=== PATIENT | male | born 1950 | race Asian ===

== ENCOUNTER 2017-05-02 10:00 | Inpatient (IN) | payer OTHER ==
[~2017-05-02] VITALS: Ht 157.5 cm; Wt 54.9 kg
--- NOTE | 2017-05-02 10:00 | NUR ---
PT PLACED IN BED 4 BY EMS.
--- NOTE | 2017-05-02 10:02 | NUR ---
Patient being evaluated by Dr. Grace at bedside.
--- NOTE | 2017-05-02 10:05 | NUR ---
PATIENT PRESENTS TO ED WITH RESP DISTRESS BROUGHT IN BY EMS . PT STATES 1-2 WORDED SPEECH . DENIES N/V/D; SKIN IS PINK/WARM/DRY; AAOX4 WITH EVEN AND STEADY GAIT; LUNGS DISTANT BREATH SOUNDS, COARSE RALES---HR TACHY AFIB; PT DENIES ANY FEVER, PATIENT STATES PAIN OF 5/10 AT THIS TIME; VSS; PATIENT POSITIONED FOR COMFORT; HOB ELEVATED; BEDRAILS UP X2; BED DOWN. ER MD MADE AWARE OF PT STATUS.
[2017-05-02] MEDS ORDERED: ALBUTEROL SULFATE/IPRATROPIU 3 ML SOL IH ONE (10:10)
[2017-05-02] MEDS ORDERED: MAG SULF 2000 MG/WATER PREMIX 50 ML IV ONE (10:10)
[2017-05-02] MEDS ORDERED: methylPREDNISolone SS 125 MG in WATER STERILE 2 ML IV ONE (10:10)
[2017-05-02] MEDS ORDERED: NACL 0.9% 1,000 ML IV ONE (10:10)
[2017-05-02 10:11] VITALS: BP 146/72
[2017-05-02] MEDS ORDERED: PIPERACILLIN/TAZOBACTAM 3.375 GM in DEXTROSE 5% 50 ML IV ONE (10:40)
[2017-05-02 10:45] LABS: BASOPHILS # (AUTO) 0.1 K/uL (0.00-0.22); BASOPHILS % (AUTO) 0.7 % (0.0-2.0); EOSINOPHILS # (AUTO) 0.2 K/uL (0-0.4); EOSINOPHILS % (AUTO) 1.4 % (0.0-4.0); HEMATOCRIT 35.5 % (36-52); HEMOGLOBIN 11.4 g/dL (12.0-18.0); LYMPHOCYTES # (AUTO) 0.6 K/uL (2.0-11.5); LYMPHOCYTES % (AUTO) 3.8 % (20.5-51.1); MEAN CORPUSCULAR HEMOGLOBIN 27 pg (27-31); MEAN CORPUSCULAR HGB CONC 32 g/dL (33-37); MEAN CORPUSCULAR VOLUME 83 fL (80-94); MONOCYTES # (AUTO) 0.4 K/uL (0.8-1.0); MONOCYTES % (AUTO) 2.4 % (1.7-9.3); NEUTROPHILS # (AUTO) 13.3 K/uL (1.8-7.7); NEUTROPHILS % (AUTO) 91.7 % (42.2-75.2); PLATELET COUNT (AUTO) 285 K/uL (140-450); RED CELL DISTRIBUTION WIDTH 13.1 % (11.6-13.7)
--- NOTE | 2017-05-02 10:50 | NUR ---
FAMILY AT BEDSIDE
[2017-05-02 10:51] LABS: ANION GAP 17.7 (8-16); CALCIUM 8.5 mg/dL (8.5-10.1); CARBON DIOXIDE 21.4 mmol/L (21-32); CREATININE 1.3 mg/dL (0.6-1.3); POTASSIUM 4.1 mmol/L (3.5-5.1)
[2017-05-02 10:56] LABS: WHITE BLOOD COUNT (AUTO) 14.6 K/uL (4.8-10.8)
[2017-05-02 10:57] LABS: ALBUMIN 2.9 g/dL (3.4-5.0); TOTAL BILIRUBIN 0.5 mg/dL (0.0-1.0); TOTAL PROTEIN, SERUM 7.7 g/dL (6.4-8.2)
[2017-05-02] MEDS ORDERED: PIPERACILLIN/TAZOBACTAM 3.375 GM VIAL IV ONE (11:12)
[2017-05-02 11:13] LABS: INR 1.1 (0.8-1.2); PARTIAL THROMBOPLASTIN TIME 30.5 secs (22-35.6); PROTHROMBIN TIME 10.7 secs (10.8-13.4)
[2017-05-02] MEDS ORDERED: FUROSEMIDE 40 MG/4 ML VIAL IVP ONE (11:15)
[2017-05-02] MEDS ORDERED: ASPIRIN 81 MG TAB.CHEW PO ONE (11:15)
[2017-05-02] MEDS ORDERED: NITROGLYCERIN 2% 1 GM PKT TP ONE (11:15)
[2017-05-02] MEDS ORDERED: ENOXAPARIN 60 MG/0.6 ML SYR SUBQ ONE (11:15)
[2017-05-02] MEDS ORDERED: NIFE30TE8 PO (12:00)
[2017-05-02] MEDS ORDERED: METF500T PO (12:00)
[2017-05-02] MEDS ORDERED: MELO15TA11 PO (12:00)
[2017-05-02] MEDS ORDERED: TAMS0.4C96 PO (12:00)
[2017-05-02] MEDS ORDERED: PRAM0.5T4 PO (12:00)
[2017-05-02] MEDS ORDERED: GABA-638 PO (12:00)
--- NOTE | 2017-05-02 12:00 | NUR ---
RESTING WITH OU CLOSED, EASY TO AWAKEN---ADMITS BREATHING MUCH EASIER INTERPRETED BY DAUGHTER JANAK. DENIES MESA, NO CP
[2017-05-02] MEDS ORDERED: MORPHINE SULFATE 2 MG/ML SYR IVP PRN (12:25)
[2017-05-02] MEDS ORDERED: HYDROcodone/APAP 5/325 MG 1 TAB TAB PO PRN (12:25)
[2017-05-02] MEDS ORDERED: ONDANSETRON 4 MG/2 ML VIAL IVP PRN (12:25)
[2017-05-02] MEDS ORDERED: ACETAMINOPHEN 325 MG TAB PO PRN (12:25)
[2017-05-02] MEDS ORDERED: LORazepam 2 MG/ML VIAL IVP PRN (12:25)
--- NOTE | 2017-05-02 12:40 | NUR ---
HANDED PT'S URINAL TO HELP PT---CONTINUES TO DENIE MESA, NO NAUSEA, NO CP
--- NOTE | 2017-05-02 12:50 | NUR ---
PT HOLDING CONVERSATION WITH AT BEDSIDE
--- NOTE | 2017-05-02 13:05 | NUR ---
RECEIVED REPORT FROM SARA HIGH IN THE ER. PT IS A 66 Y/O MALE, LITHUANIAN SPEAKING. GOT THE ROOM READY. WAITING FOR PT TO ARRIVE ONTO THE FLOOR.
[2017-05-02 13:26] LABS: APPEARANCE,URINE CLEAR (CLEAR); BILIRUBIN,URINE NEGATIVE (NEGATIVE); BLOOD, URINE NEGATIVE (NEGATIVE); COLOR,URINE YELLOW (YELLOW); LEUKOCYTE ESTERASE ,URINE NEGATIVE (NEGATIVE); NITRITE, URINE NEGATIVE (NEGATIVE); PROTEIN,URINE NEGATIVE (NEGATIVE); UGLUCOSE NEGATIVE (NEGATIVE); UROBILINOGEN,URINE 0.2 EU/dL (0.2 - 1)
--- NOTE | 2017-05-02 13:30 | NUR ---
PT ARRIVED ON THE UNIT WITH 2 ER NURSES. PT IS AWAKE AND ALERT. I INTRODUCED MYSELF AND UPDATED THE BOARD. PT WEARING A VENTURI MASK, 12 L O2. PT IS BREATHING DEEPLY, USING ACCESSORY MUSCLES. PT HAS IV IN HIS L FA 20G, NS NOT INFUSING AT THIS TIME. PT HAS BRUISES ON HIS CHEST, D/T "COINING" THIS MORNING. NO SIGNS OF EDEMA IN EXTREMETIES. SKIN IS INTACT. DAUGHTER AND SPOUSE AT BEDSIDE. DR KEITA WAS HERE TO EXAMINE THE PT. WILL CONTINUE WITH ADMISSION.
[2017-05-02] MEDS: ALBUTEROL 0.083% 2.5 MG/3 ML NEBU IH SCH ×2 (14:04→20:18)
--- NOTE | 2017-05-02 14:14 | NUR ---
SATURATION 98% ON SUPPLEMENTAL OXYGEN VIA VENTI-MASK AT 15 LPM POST HHN THERAPY CHANGED OXYGEN DEVICE TO A NASAL CANNULA AT 2 LPM EUGENIO/RN NOTIFIED
[2017-05-02 14:23] VITALS: BP 120/65
--- NOTE | 2017-05-02 15:04 | NUR ---
ADMINISTERED ROCEPHIN. PT TOLERATING WELL. PT RESTING COMFORTABLY. NO SIGNS OF DISTRESS. NO COMPLAINTS AT THIS TIME. ASKED ABOUT FAMILY. I REMINDED HIM THAT THEY WILL BE HERE SOON. WILL CONTINUE TO CHECK ON PT.
[2017-05-02] MEDS ORDERED: DEXTROSE 50% 50 ML SYR IVP PRN (15:35)
[2017-05-02] MEDS: BLOOD GLUCOSE MONITORING 1 DEV DEV FS SCH ×2 (16:41→21:15)
[2017-05-02] MEDS: GABAPENTIN 300 MG CAP PO SCH (16:42)
[2017-05-02] MEDS: AZITHROMYCIN 500 MG in DEXTROSE 5% 250 ML IV SCH (16:42)
[2017-05-02] MEDS: INSULIN LISPRO SLIDING SCALE 100 UNITS/ML VIAL SUBQ PRN ×2 (16:45→21:21)
--- NOTE | 2017-05-02 17:00 | NUR ---
PT SLEEPING COMFORTABLY. ADMINISTERED ABX. PT TOLERATING WELL. NO FAMILY YET. WILL CONTINUE TO MONITOR PT.
[2017-05-02 18:38] VITALS: BP 109/55
--- NOTE | 2017-05-02 18:43 | NUR ---
PT ATE DINNER. TOLERATED WELL. PT RESTING IN BED. NEEDED A VOMIT BAG FOR SPIT UP. NO VOMITING. PT DENIES PAIN. NO COMPLAINTS. WILL CONTINUE TO MONITOR.
--- NOTE | 2017-05-02 19:20 | NUR ---
ENDORSED PT TO THE FLIGHT OPERATION COORDINATOR NURSE AT BEDSIDE FOR CONTINUITY OF CARE. PT IS IN STABLE CONDITION.
--- NOTE | 2017-05-02 19:25 | NUR ---
RECEIVED PT AWAKE, ON HIGH FOWLERS POSITION, VITAL SIGNS TAKEN, BP-96/52, TOOK OFF NITRO-PASTE, DENIES ANY PAIN, NO SOB NOTED, ON O2 AT 2L/NC, LUXEMBOURGER SPEAKING BUT CAN UNDERSTAND A LITTLE BERMUDIAN, SAFETY MEASURES IN PLACE, PLAN OF CARE DISCUSSED WITH PT AND SON AT BEDSIDE, CALL LIGHT WITHIN REACH.
[2017-05-02 20:00] VITALS: BP 96/52
[2017-05-02 20:00] LABS: CREATINE KINASE MB 2.3 ng/mL (0-3.6)
[2017-05-02] MEDS: FUROSEMIDE 40 MG/4 ML VIAL IVP SCH (21:00)
[2017-05-02] MEDS: METOPROLOL 25 MG TAB PO SCH (21:00)
[2017-05-02] MEDS: CARVEDILOL 3.125 MG TAB PO SCH (21:00)
[2017-05-02] MEDS: SIMVASTATIN 40 MG TAB PO SCH (21:17)
[2017-05-02] MEDS: PRAMIPEXOLE 0.5 MG TAB PO SCH (21:17)
--- NOTE | 2017-05-02 21:40 | NUR ---
PT VOIDING FREELY PER URINAL WITH 300ML CLEAR URINE, STRICT I&O, ALL NEEDS ATTENDED.
--- NOTE | 2017-05-02 22:50 | NUR ---
PT AMBULATED TO BR WITH ASSIST, NO SOB NOTED, VERBALIZED HAD BM WITH MODERATE SOFT STOOL, MONITORED CLOSELY.
[2017-05-03] VITALS: BP 113/53
--- NOTE | 2017-05-03 | NUR ---
PT SLEEPING, EASILY AROUSABLE, VITAL SIGNS STABLE, DENIES ANY PAIN AND NO SOB NOTED, CONTINUE TO MONITOR CLOSELY.
[2017-05-03] MEDS: ALBUTEROL 0.083% 2.5 MG/3 ML NEBU IH SCH ×4 (01:15→19:45)
[2017-05-03 04:00] VITALS: BP 102/54
--- NOTE | 2017-05-03 04:00 | NUR ---
PT SLEEPING, EASILY AROUSABLE, VITAL SIGNS STABLE, DENIES ANY PAIN OR SOB, OCCASIONAL PRODUCTIVE COUGH NOTED, MONITORED CLOSELY.
--- NOTE | 2017-05-03 06:00 | NUR ---
BLOOD SUGAR CHECKED WITH 197 RESULT, COVERAGE GIVEN, SPUTUM FOR CULTURE SENT TO LAB.
[2017-05-03] MEDS: INSULIN LISPRO SLIDING SCALE 100 UNITS/ML VIAL SUBQ PRN ×3 (06:02→18:20)
[2017-05-03 06:41] LABS: BASOPHILS % (AUTO) 0.1 % (0.0-2.0); EOSINOPHILS % (AUTO) 0.1 % (0.0-4.0); HEMATOCRIT 30.7 % (36-52); HEMOGLOBIN 9.7 g/dL (12.0-18.0); LYMPHOCYTES # (AUTO) 0.3 K/uL (2.0-11.5); LYMPHOCYTES % (AUTO) 2.3 % (20.5-51.1); MEAN CORPUSCULAR HEMOGLOBIN 26 pg (27-31); MEAN CORPUSCULAR HGB CONC 32 g/dL (33-37); MEAN CORPUSCULAR VOLUME 82 fL (80-94); MONOCYTES # (AUTO) 0.2 K/uL (0.8-1.0); MONOCYTES % (AUTO) 2.2 % (1.7-9.3); NEUTROPHILS # (AUTO) 10.6 K/uL (1.8-7.7); NEUTROPHILS % (AUTO) 95.3 % (42.2-75.2); PLATELET COUNT (AUTO) 276 K/uL (140-450); RED BLOOD CELL COUNT(AUTO) 3.75 MIL/uL (4.20-6.10); RED CELL DISTRIBUTION WIDTH 12.8 % (11.6-13.7); WHITE BLOOD COUNT (AUTO) 11.1 K/uL (4.8-10.8)
[2017-05-03] MEDS: BLOOD GLUCOSE MONITORING 1 DEV DEV FS SCH ×4 (06:42→20:48)
[2017-05-03 07:05] LABS: ANION GAP 17.7 (8-16); CALCIUM 8.1 mg/dL (8.5-10.1); CARBON DIOXIDE 21.1 mmol/L (21-32); CREATININE 1.5 mg/dL (0.6-1.3); POTASSIUM 3.8 mmol/L (3.5-5.1)
--- NOTE | 2017-05-03 07:30 | NUR ---
PT AWAKE, NO DISTRESS NOTED, REPORT GIVEN TO GREG DUMONT FOR CONTINUITY OF CARE.
--- NOTE | 2017-05-03 07:32 | NUR ---
PT UNABLE TO PRODUCE SPUTUM AT THIS TIME
--- NOTE | 2017-05-03 07:45 | NUR ---
Patient's Plan of Care was discussed and reviewed with WATER TREATMENT PLANT REPAIRER: SPARK
[2017-05-03 08:00] VITALS: BP 112/61
[2017-05-03] MEDS: FUROSEMIDE 40 MG/4 ML VIAL IVP SCH ×2 (08:59→21:05)
[2017-05-03] MEDS: NIFEdipine 30 MG TABER PO SCH ×2 (09:00→10:47)
--- NOTE | 2017-05-03 09:00 | NUR ---
BP 105/60. IV LASIX HELD. WILL CONTINUE TO MONITOR
--- NOTE | 2017-05-03 09:59 | NUR ---
PATIENT HAS BEEN SCREENED AND CATEGORIZED MODERATE NUTRITION RISK. PATIENT WILL BE SEEN WITHIN 3-5 DAYS OF ADMISSION. 05/05/17-05/07/[address]
[2017-05-03] MEDS: GABAPENTIN 300 MG CAP PO SCH ×3 (10:44→17:52)
[2017-05-03] MEDS: CARVEDILOL 3.125 MG TAB PO SCH ×2 (10:44→21:00)
[2017-05-03] MEDS: ENALAPRIL 5 MG TAB PO SCH (10:45)
[2017-05-03] MEDS: ASPIRIN 81 MG TAB.CHEW PO SCH (10:45)
[2017-05-03] MEDS: TAMSULOSIN 0.4 MG CAP PO SCH (10:45)
[2017-05-03] MEDS: METOPROLOL 25 MG TAB PO SCH ×2 (10:46→21:00)
[2017-05-03] MEDS: ENOXAPARIN 40 MG/0.4 ML SYR SUBQ SCH (10:51)
--- NOTE | 2017-05-03 11:59 | NUR ---
FAXED INITIAL REVIEW TO [facility] [phone] PHONE [phone] SELINA
[2017-05-03 12:18] VITALS: BP 108/62
[2017-05-03] MEDS: AZITHROMYCIN 500 MG in DEXTROSE 5% 250 ML IV SCH (16:28)
[2017-05-03 16:31] VITALS: BP 92/53
--- NOTE | 2017-05-03 16:46 | NUR ---
LEFT PERIPHERAL IV NOTED TO HAVE BEEN PULLED OUT UPON ASSESSMENT. NO BLEEDING NOTED. NO C/O PAIN FROM PT. NEW IV STARTED IN LEFT FOREARM 20 GAUGE. GOOD BLOOD RETURN. FLUSHES WELL. INTACT AND PATENT. NO C/O PAIN FROM PT. TOLERATED WELL.
--- NOTE | 2017-05-03 19:50 | NUR ---
RECEIVED REPORT FROM MORNING NURSE AT BEDSIDE, PT IS AAOX4, PERSIAN SPEAKING, ABLE TO FOLLOW COMMANDS AND MAKE NEEDS KNOWN, VSS. DENIES PAIN, NO SOB/DISTRESS NOTED, BREATHING EVEN AND UNLABORED, CRACKLED LUNG SOUND NOTED, ON RA. SR ON TELE MONITOR, DENIES CHEST PAIN, SOFT ABDOMEN WITH ACTIVE BOWEL SOUNDS, CONTINENT B&B, GENERALIZED WEAKNESS NOTED, BUT AMBULATORY WITH STEADY GAIT, AFEBRILE, SKIN IS INTACT, WARM AND DRY TO TOUCH. IV SITE TO LEFT FOREARM 20 GA, PATENT, SL. SAFETY MEASURES IN PLACE, PLAN OF CARE DISCUSSED WITH PT AND SON AT BEDSIDE, CALL LIGHT WITHIN REACH, WILL CONTINUE TO MONITOR.
[2017-05-03 20:00] VITALS: BP 92/45
--- NOTE | 2017-05-03 21:00 | NUR ---
PT'S BP 92/45, SCHEDULED BP MEDICATION HOLD ORDERED. ACCU CHECK PERFORMED WITH RESULT OF 142 MG/DL, NO INSULIN GIVEN AT THIS TIME.
[2017-05-03] MEDS: PRAMIPEXOLE 0.5 MG TAB PO SCH (21:06)
[2017-05-03] MEDS: SIMVASTATIN 40 MG TAB PO SCH (21:06)
[2017-05-04] VITALS: BP 96/52
--- NOTE | 2017-05-04 | NUR ---
PT IS RESTING IN BED, NO S/S OF DISTRESS, VSS.
[2017-05-04] MEDS: ALBUTEROL 0.083% 2.5 MG/3 ML NEBU IH SCH ×3 (01:56→12:00)
[2017-05-04 04:00] VITALS: BP 103/58
--- NOTE | 2017-05-04 04:10 | NUR ---
PT C/O N/V, AND VOMITED SMALL AMOUNT OF EMESIS X1, MEDICATED AND EDUCATED. VSS
[2017-05-04] MEDS: BLOOD GLUCOSE MONITORING 1 DEV DEV FS SCH ×2 (05:57→11:53)
[2017-05-04 06:50] LABS: ANION GAP 14.9 (8-16); CALCIUM 8.3 mg/dL (8.5-10.1); CARBON DIOXIDE 24.9 mmol/L (21-32); CREATININE 1.4 mg/dL (0.6-1.3); POTASSIUM 3.8 mmol/L (3.5-5.1)
[2017-05-04 06:55] LABS: BASOPHILS # (AUTO) 0.1 K/uL (0.00-0.22); BASOPHILS % (AUTO) 0.6 % (0.0-2.0); EOSINOPHILS # (AUTO) 0.1 K/uL (0-0.4); HEMATOCRIT 32.8 % (36-52); HEMOGLOBIN 10.6 g/dL (12.0-18.0); LYMPHOCYTES # (AUTO) 1.1 K/uL (2.0-11.5); LYMPHOCYTES % (AUTO) 8.5 % (20.5-51.1); MEAN CORPUSCULAR HEMOGLOBIN 27 pg (27-31); MEAN CORPUSCULAR HGB CONC 33 g/dL (33-37); MEAN CORPUSCULAR VOLUME 82 fL (80-94); MONOCYTES # (AUTO) 0.5 K/uL (0.8-1.0); MONOCYTES % (AUTO) 3.7 % (1.7-9.3); NEUTROPHILS # (AUTO) 10.7 K/uL (1.8-7.7); NEUTROPHILS % (AUTO) 86.2 % (42.2-75.2); PLATELET COUNT (AUTO) 322 K/uL (140-450); RED BLOOD CELL COUNT(AUTO) 4.01 MIL/uL (4.20-6.10); RED CELL DISTRIBUTION WIDTH 12.9 % (11.6-13.7); WHITE BLOOD COUNT (AUTO) 12.5 K/uL (4.8-10.8)
--- NOTE | 2017-05-04 07:30 | NUR ---
REPORT GIVEN TO MORNING SHIFT NURSE AT BEDSIDE FOR CONTINUE OF CARE, PT IS IN STABLE CONDITION AT THIS TIME.
--- NOTE | 2017-05-04 07:32 | NUR ---
REPORT RECEIVED FROM COMPLEX HUMAN RESOURCES MANAGER, PT AWAKE ALERT OX4 IN NAD, RESP EVEN UNLABORED ON NEB TREATMENT CURRENTLY, PT DENIES PAIN OR DISCOMFORT, BREATH SOUNDS CLEAR BILAT, SKIN WARM DRY COLOR WNL, PLAN OF CARE DISCUSSED, DENIES ANY IMMEDIATE NEEDS, CALL CALDERON WITHIN REACH, SIDE RAILS UP, BED LOCKED IN LOW POSITION, WILL CONTINUE TO MONITOR.
[2017-05-04 08:00] VITALS: BP 107/57
[2017-05-04] MEDS: FUROSEMIDE 40 MG/4 ML VIAL IVP SCH (08:37)
[2017-05-04] MEDS: ASPIRIN 81 MG TAB.CHEW PO SCH (08:38)
[2017-05-04] MEDS: TAMSULOSIN 0.4 MG CAP PO SCH (08:38)
[2017-05-04] MEDS: GABAPENTIN 300 MG CAP PO SCH ×2 (08:38→13:31)
[2017-05-04] MEDS: ENOXAPARIN 40 MG/0.4 ML SYR SUBQ SCH (08:40)
[2017-05-04] MEDS: CARVEDILOL 3.125 MG TAB PO SCH (08:46)
[2017-05-04] MEDS: NIFEdipine 30 MG TABER PO SCH (08:46)
[2017-05-04] MEDS: METOPROLOL 25 MG TAB PO SCH (08:47)
[2017-05-04] MEDS: ENALAPRIL 5 MG TAB PO SCH (08:47)
--- NOTE | 2017-05-04 08:47 | NUR ---
BP 107/57, LASIX GIVEN PER ORDER, OTHER BP MEDS NIFEDIPINE, COREG, METOPROLOL AND ENALAPRIL HELD. PT C/O BILAT NECK PAIN WITH MOVEMENT 06/30, WILL GIVEN NORCO.
--- NOTE | 2017-05-04 09:47 | NUR ---
PT TO RADIOLOGY FOR XRAY
--- NOTE | 2017-05-04 10:23 | NUR ---
WENT TO PATIENT'S ROOM AND DR. Alex ALFORD WAS SPEAKING WITH THE GRANDDAUGHTER, MARIETTA COX ABOUT OPTIONS FOR THE PATIENT, STENT,VS SURGERY, ETC. PHONE FOR MARIETTA, . AFTER SPEAKING WITH HER, DR. ALFORD SAID HE WOULD SPEAK WITH DR. GUERRREO ABOUT POS. SURGEON TO SEE PATIENT. Addendum: 05/04/17 at 1038 by Le Holden DISREGARD ABOVE NOTE. WRONG PATIENT.
--- NOTE | 2017-05-04 10:30 | NUR ---
PT RESTING COMFORTABLY IN NAD, RESP EVEN UNLABORED, SKIN WARM DRY COLOR WNL, PT STATES NECK PAIN IS BETTER, PT REMAINS ON TRIMMER OPERATOR THREE KNIFE, CALL CALDERON WITHIN REACH, SIDE RAILS UP, PT DENIES ANY IMMEDIATE NEEDS, WILL CONTINUE TO MONITOR.
--- NOTE | 2017-05-04 10:56 | NUR ---
PER SELINA REQUEST, REFAXED INITIAL REVIEW TO HER AT [facility]. FAXED CONCURRENT REVIEW TO [facility] [phone] PHONE SELINA [phone]
[2017-05-04 12:00] VITALS: BP 106/55
[2017-05-04] MEDS: INSULIN LISPRO SLIDING SCALE 100 UNITS/ML VIAL SUBQ PRN (12:07)
[2017-05-04] MEDS ORDERED: FURO-570 PO (13:11)
[2017-05-04] MEDS ORDERED: CARV3.122 PO (13:11)
[2017-05-04] MEDS ORDERED: ASPI81CT27 PO (13:11)
[2017-05-04] MEDS ORDERED: VAS5 PO (13:11)
[2017-05-04] MEDS ORDERED: LEVO750T2 PO (13:12)
--- NOTE | 2017-05-04 15:15 | NUR ---
PER DR WHITESIDE ON THE PHONE, PT OK TO GO HOME, F/U WITHIN 2 MONTHS.
[2017-05-04 16:00] VITALS: BP 108/58
--- NOTE | 2017-05-04 16:30 | NUR ---
DC INSTRUCTION AND RX GIVEN AND EXPLAINED TO PT VIA TELEPHONE [id number], PT AWARE OF F/U WITH PCP WITHIN 2WKS, CARDIOLOGY DR WHITESIDE IN 4 WKS, MEDS REVIEWED, PT VERBALIZED FULL UNDERSTANDING, IV DC'D, CATH TIP INTACT, BLEEDING CONTROLLED, PT SARY WELL, PICTURE OF CHEST BRUISING TAKEN, ALL QUESTIONS ASKED AND ANSWERED, PT WAITING FOR HIS SON TO COME PICK HIM UP IN 1HR.
--- NOTE | 2017-05-04 17:20 | NUR ---
DC HOME NOW WITH SON, PT AMBULATES WELL WITHOUT SOB OR CHEST PAIN, DECLINES OFFER OF WHEELCHAIR, ESCORTED OUT BY ORACLE FORMS DEVELOPER.
== END 2017-05-04 18:10 | disposition home or self-care (01) | DRG 280 ==
LOC: MED 10:00 → MTU 12:24
PROVIDERS: ADMIT Hospitalist; ATTEND Hospitalist
DX: I21.4 Non-ST elevation (NSTEMI) myocardial infarction (principal); I50.43 Acute on chronic combined systolic (congestive) and diastolic (congestive) heart failure; J18.9 Pneumonia, unspecified organism; R64 Cachexia; I13.0 Hypertensive heart and chronic kidney disease with heart failure and stage 1 through stage 4 chronic kidney disease, or unspecified chronic kidney disease; D64.9 Anemia, unspecified; E11.22 Type 2 diabetes mellitus with diabetic chronic kidney disease; E78.5 Hyperlipidemia, unspecified; N18.9 Chronic kidney disease, unspecified; M17.0 Bilateral primary osteoarthritis of knee; I25.10 Atherosclerotic heart disease of native coronary artery without angina pectoris; Z87.891 Personal history of nicotine dependence; Z68.21 Body mass index [BMI] 21.0-21.9, adult
CPT/HCPCS: 36415; 71010; 71020; 80048; 80053; 81003; 82550; 82553; 82948; 83605; 83735; 83880; 84484; 85025; 85610; 85730; 87040; 87070; 87081; 87086; 87205; 93005; 94640; 96365; 96367; 96375; 99291; J0456; J0696; J1650; J1815; J1940; J2405; J2543; J2930; J3475; J7060; J7613; J7620; Q0092

== ENCOUNTER 2018-06-05 15:51 | Emergency (ER) | payer OTHER ==
[~2018-06-05] VITALS: Ht 154.9 cm; Wt 41.9 kg
[~2018-06-05 15:51] MED LIST: ASPI81CT95 PO; CARV3.122 PO; FURO-570 PO; GABA-638 PO; LEVO750T2 PO; MELO15TA11 PO; METF500T PO; NIFE30TE8 PO; PRAM0.5T4 PO; TAMS0.4C96 PO; VAS5 PO
[2018-06-05 15:56] VITALS: BP 87/47
[2018-06-05] MEDS ORDERED: NACL 0.9% 500 ML IV ONE ×2 (16:15→17:55)
[2018-06-05] MEDS ORDERED: LIDOCAINE 2% 1000 MG/50 ML VIAL INJ ONE (17:00)
[2018-06-05 17:08] LABS: ALBUMIN 3.2 g/dL (3.4-5.0); ANION GAP 14.7 (8-16); CARBON DIOXIDE 22.4 mmol/L (21-32); CREATININE 2.1 mg/dL (0.7-1.3); POTASSIUM 5.1 mmol/L (3.5-5.1); TOTAL BILIRUBIN 0.2 mg/dL (0.0-1.0)
[2018-06-05] MEDS ORDERED: NEOMYCIN/POLYMYXIN/BACITRACIN 0.9 GM/1 PKT TP ONE (17:47)
[2018-06-05 18:47] VITALS: BP 112/50
== END 2018-06-05 18:49 | disposition home or self-care (01) ==
LOC: MED 15:51
DX: S01.81XA Laceration without foreign body of other part of head, initial encounter (principal); W01.10XA Fall on same level from slipping, tripping and stumbling with subsequent striking against unspecified object, initial encounter; Y93.89 Activity, other specified; Y92.89 Other specified places as the place of occurrence of the external cause; Y99.8 Other external cause status
CPT/HCPCS: 12013; 36415; 70450; 80053; 82948; 93005; 99285; J2001